=== PATIENT | female | born 2000 | race Caucasian/White ===

== ENCOUNTER 2024-09-01 22:52 | Emergency (ER) | payer MEDICAID, OTHER ==
[~2024-09-01] VITALS: Ht 162.6 cm; Wt 75.0 kg
[2024-09-01 23:27] LABS: COVID AG,FIA SOURCE NASAL SWAB
[2024-09-01 23:48] LABS: SARS-COV2 (COVID) ANTIGEN,FIA Negative (Negative)
[2024-09-01 23:49] LABS: INFLUENZA TYPE A NEGATIVE FOR TYPE A (NEGATIVE); INFLUENZA TYPE B NEGATIVE FOR TYPE B (NEGATIVE)
[2024-09-02] MEDS: KETOROLAC TROMETHAMINE 30 MG/ML VIAL IM ONE (01:11)
[2024-09-02] MEDS ORDERED: TraMADol HCL 50 MG TABLET PO ONE (01:15)
[2024-09-02] MEDS ORDERED: AMOX250C4 PO (01:29)
[2024-09-02] MEDS ORDERED: TRAM50TA5 PO (01:29)
[2024-09-02 02:16] VITALS: BP 127/71; PULSE 68; RESP 20; TEMP 98.7; O2SAT 100
== END 2024-09-02 02:41 | disposition home or self-care (01) ==
LOC: EMS 22:52
DX: H92.01 Otalgia, right ear (principal); Z20.822 Contact with and (suspected) exposure to COVID-19
CPT/HCPCS: 99283; 87426; 87804; 96372; J1885